=== PATIENT | male | born 1950 | race Caucasian/White ===

== ENCOUNTER 2020-07-03 06:10 | Day surgery (SDC) | payer MEDICARE ==
[2020-06-30 16:16] LABS: HEMATOCRIT 42.4 % (42.0-54.0); HEMOGLOBIN 13.6 g/dL (13.5-17.5); MCH 31.5 pg (26.0-34.0); MCHC 32.1 g/dL (31.0-37.0); MCV 98.1 fL (80.0-100.0); MEAN PLATELET VOLUME 9.2 fL (7.4-10.4); RBC 4.32 10x6/uL (4.20-6.10); RDW 14.4 % (11.5-14.5); WBC 10.7 10x3/uL (4.8-10.8)
[2020-06-30 16:39] LABS: CALCIUM 9.6 mg/dL (8.5-10.1); CARBON DIOXIDE 31.8 mmol/L (21.0-32.0); CREATININE - SERUM 1.2 mg/dL (0.6-1.3); POTASSIUM - SERUM 3.8 mmol/L (3.5-5.1)
[2020-07-03] VITALS (14 sets, daily range): BP systolic 127–177; BP diastolic 68–114; Ht 182.9 cm; Wt 113.6 kg
[~2020-07-03] VITALS: Ht 182.9 cm; Wt 113.6 kg
--- NOTE | ~2020-07-03 | OP ---
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 PROCEDURE: Anterior cervical discectomy and fusion at C4-C5 and C5-C6 with Zavation midline anterior cervical plate and screws, separate PEEK interbody cage with bone stem cells and Katherine bone allograft. SURGEON: Micheline Perkins MD DESCRIPTION AND TECHNIQUE: After induction of general endotracheal anesthesia, the patient was positioned supine on the operating table. Neck was prepped and draped in usual sterile fashion. Fluoroscopic x-ray localized the C4-C5 interspace. After infiltration of 1:100,000 epinephrine and 1% lidocaine, a transverse skin incision was carried out from the midline to the sternocleidomastoid muscle. The platysma was divided with Bovie cautery. Using blunt and sharp dissection with Metzenbaum scissors, I proceeded in the avascular plane medial to the carotid sheath. The C4-C5 interspace was identified with fluoroscopic x-ray and spinal needle. The longus colli muscles were elevated from the bodies of C4, C5, and C6. The C4-C5 and C5-C6 interspaces were incised with #11 blade under distraction. The disc material was removed at C4-C5 and C5-C6 with pituitary rongeurs and curettes. Osteophytes were drilled away posteriorly at C4-5 and C5-6 under microscope with Midas-Garrison drill. The posterior longitudinal ligament was removed with Cloward rongeurs. The dura was decompressed well. A PEEK interbody cage was placed in the disc space at C4-C5, C5-C6 under distraction. Prior to this, it was filled with Katherine bone allograft. A Zavation midline anterior cervical plate was used to span C4-C5 and C5-C6 interspace. Locking cams were tightened down over the screw heads. Good position of the hardware was confirmed with fluoroscopic x-ray. Meticulous hemostasis was maintained throughout the wound. Wound was irrigated with copious amounts of Ancef irrigant solution. The platysma and subdermal layer closed with interrupted 4-0 Vicryl suture, skin reapproximated with Steri-Strips and benzoin. A sterile dressing was applied. The patient was awakened in good condition and taken to recovery. All counts were reported as correct. Estimated blood loss was minimal. TRANSINT:[id number] Voice Confirmation ID: [id number] DOCUMENT ID: [id number] MICHELINE PERKINS MD CC: [id number] DICTATION DATE: 07/12/20 1235 FIELD REVIEWER: 07/13/20 0142 [facility] 07/04/20 [id number] [place] [id number]
[~2020-07-03 06:10] MED LIST: CARDIZEM120 MG PO; CYMBALTA60 MG PO; GABAPENTIN100 MG PO; HYDROCHLOROTHIA25 MG PO; HYDROCODON-ACE1 EA10 PO; HYTRIN5 MG PO; MOBIC7.5 MG PO; PREDNISONE10 MG PO; ROPINIROLE HCL1 MG PO; TERBINAFINE HC250 MG PO; TOFRANIL25 MG PO; TRAZODONE HCL100 MG PO; TRIAMTERENE-HC1 EAC3 PO; ZANAFLEX4 MG
--- NOTE | 2020-07-03 20:12 | NUR ---
PAGED DR ARORA TO GIVE UPDATE ON PT AND TO SEE ABOUT RESTARTING MULT. HOME MEDS.
--- NOTE | 2020-07-03 20:30 | NUR ---
SPOKE WITH DR WALLIS, ORDERS RECIEVED TO RESTART HOME CARDIZEM 120MG PO TID.
--- NOTE | 2020-07-03 20:35 | NUR ---
DR ARORA CALLED BACK, RECIEVED ORDERS TO GO AHEAD AND RESTART HOME MEDS AND TO GIVE DAILY BP MEDS TONIGHT. PLEASE SEE ORDERS FOR DETAILS.
[2020-07-04 03:00] VITALS: BP 157/86
[2020-07-04 07:00] VITALS: BP 179/102
[2020-07-04 08:00] VITALS: BP 157/86
--- NOTE | 2020-07-04 11:55 | NUR ---
0730-PER FLOW SHEET-REQUESTING HOME MEDS AT THIS TIME 1030-DR ARORA AT BEDSIDE-REVIEWED WITH PT DISCHARGE INSTRUCTIONS-R PERIPHERAL IV D/C'D-PER PROTOCOL-PT AMBULATING 1200-AMBULATING FREELY IN STREET CLOTHES WAITING FOR RIDE HOME
--- NOTE | 2020-07-04 15:22 | NUR ---
1330-PT C/O PAIN TO NECK INCISION AREA-DENIES IN ANY OTHER AREA-DENIES TINGLING TO ARMS-ZULUAGA = AND STRONG-PT WEARING SOFT COLLAR WHILE AMBULATING FREELY-NORCO 5 PO X2 TABS GIVEN-PT CONTINUES TO AMBULATE IN UNIT 1445-PT "RIDE ' ARRIVED-TO ER AREA WITH WHEELCHAIR
== END 2020-07-04 15:50 | disposition home or self-care (01) ==
LOC: D.OPS 06:10 → D.PAN 09:45 → D.OPS 10:00 → D.CVICU 12:49 → D.OPS 07-04 15:50
PROVIDERS: Anesthesiology; ATTEND Neurological Surgery
DX: M50.121 Cervical disc disorder at C4-C5 level with radiculopathy (principal); M50.122 Cervical disc disorder at C5-C6 level with radiculopathy; M54.5 Low back pain; M54.12 Radiculopathy, cervical region; I10 Essential (primary) hypertension; U07.1 COVID-19